=== PATIENT | female | born 1995 | race Hispanic/Latino ===

== ENCOUNTER 2024-07-14 13:41 | Emergency (ER) | payer BC, SELFPAY ==
[2024-07-14 13:45] VITALS: BP 164/99
[2024-07-14 14:05] LABS: % Basophils 0.6 % (0-2); % Eosinophils 1.4 % (0-6); % Immature Granulocytes 0.4 % (0-0.5); % Monocytes 6.6 % (1.7-9.3); Absolute Basophils 0.1 10^3/uL (0-0.2); Absolute Eosinophils 0.1 10^3/uL (0-0.7); Absolute Lymphocytes 2.3 10^3/uL (1.2-3.4); Absolute Monocytes 0.7 10^3/uL (0.1-0.6); Absolute Neutrophils 6.7 10^3/uL (1.4-6.5); Hematocrit 42.1 % (37.0-47.0); Hemoglobin 14.9 g/dL (12.0-16.0); Mean Corp Hgb Conc. 35.4 g/dL (33.0-37.0); Mean Corpuscular Volume 84.7 fL (81.0-99.0); Mean Platelet Volume 8.6 fL (7.4-10.4); Nucleated Red Blood Cells % 0 %; Platelet Count 353 10^3/uL (130-400); Red Blood Cell Count 4.97 10^6/uL (4.20-5.40); White Blood Cell Count 9.9 10^3/uL (4.8-10.8)
[2024-07-14 14:13] LABS: HCG, Serum Qualitative Screen Negative
[2024-07-14 14:14] LABS: INR 0.92; PT 12.7 Sec (11.4-14.6)
[2024-07-14 14:17] LABS: ALT (SGPT) 83 U/L (0-35); AST (SGOT) 45 U/L (14-36); Albumin 5.1 g/dl (3.5-5.0); Alkaline Phosphatase 95 U/L (38-126); Blood Urea Nitrogen 13 mg/dl (7-17); Calcium 9.9 mg/dl (8.4-10.2); Carbon Dioxide 24 mmol/L (22-30); Chloride 100 mmol/L (98-107); Glucose 109 mg/dl (70-99); Potassium 4.2 mmol/L (3.5-5.1); Sodium 136 mmol/L (135-145); Total Bilirubin 0.7 mg/dl (0.2-1.3); Total Protein 8.2 g/dl (6.3-8.2); eGFR > 60.00
[2024-07-14 14:29] LABS: Troponin I < 0.012 ng/ml
[2024-07-14 14:48] LABS: TSH Reflex To Free T4 1.46 uIU/ml (0.47-4.68)
--- NOTE | 2024-07-14 14:52 | ED.GENMED ---
History of Present Illness
General
Chief Complaint: Heart Rate Problem
Source: patient
Exam Limitations: none
Time Seen by Provider: 07/14/24 14:43
Nursing documentation reviewed up to this point in time: agreed with
History of Present Illness
History of Present Illness:
This is a 28-year-old female with no past medical history who presents emergency department today with concerns of asymptomatic tachycardia. Patient reports that she had a checkup with her primary care provider today and they noted incidentally on
her vital signs that her heart rate was elevated. They subsequently did a EKG and they saw 'abnormalities' and advised her to report to the emergency department for further evaluation. Patient denies any sensation of palpitations, chest pain She
denies shortness of breath. Patient's primary care provider is concerned about a possible blood clot. She denies any recent long distance travel, denies any oral contraceptive use, denies any redness or swelling in 1 leg. She denies any syncopal
episodes. She states that she has a history of sinus tachycardia and was told that appointments before that her heart rate is high.
Review of Systems
Review of Systems
All Other Systems: ROS reviewed and negative except as documented in HPI and ROS
Phy Exam
Physical Exam
Physical Exam:
General: Patient is well appearing and in no acute distress; non-toxic
Skin: Warm and dry, no rashes or lesions
Head: Normocephalic, atraumatic
Eyes: Sclera non-icteric. EOMs intact.
Cardiac: Mild tachycardia noted otherwise regular rhythm, no murmurs
Peripheral Vascular: No lower extremity swelling or edema
Pulm: Normal respiratory effort, no wheezes, rales, rhonchi
Abdomen: No abdominal tenderness to palpation
Neuro: CN II-XII intact, no focal neurologic deficits.
Psychiatric: Appropriate mood and affect.
Course
Orders/Labs/Results
Orders:
Orders
07/14/24 13:43
EKG [Electrocardiogram (*1)] Urgent
Reason for Study: Bradycardia / Tachycardia
EKG- Treatment ONCE
Test Result ONCE
07/14/24 13:54
Complete Blood Count/With Diff Urgent
Comprehensive Metabolic Panel Urgent
HCG, Serum Qualitative Screen Urgent
Prothrombin Time Urgent
TSH Reflex To Free T4 Urgent
Troponin I Urgent
07/14/24 15:07
Cardiac Monitoring- Treatment ONCE
07/14/24 15:28
D-Dimer Urgent
Magnesium Urgent
Abnormal Lab Results
07/14/24
13:54
Absolute Neuts (auto) 6.7 H 10^3/uL
(1.4-6.5)
Absolute Monos (auto) 0.7 H 10^3/uL
(0.1-0.6)
Glucose 109 H mg/dl
(70-99)
AST 45 H U/L
(14-36)
ALT 83 H U/L
(0-35)
Albumin 5.1 H g/dl
(3.5-5.0)
07/14/24 13:54
07/14/24 13:54
Vital Signs
Pulse: 104
Initial and Last Documented VS:
Initial Vital Signs
Temp Pulse Resp BP Pulse Ox
99.0 F 114 16 164/99 99
07/14/24 13:45 07/14/24 13:45 07/14/24 13:45 07/14/24 13:45 07/14/24 13:45
Last Documented Vital Signs
Temp Pulse Resp BP Pulse Ox
99.0 F 93 23 164/99 98
07/14/24 13:45 07/14/24 16:15 07/14/24 16:15 07/14/24 13:45 07/14/24 16:15
MDM/Problems Addressed
Differential Diagnosis Includes:
Sinus tachycardia, atrial tachycardia, pulmonary embolism, hyperthyroidism, symptomatic anemia
MDM/Problems Addressed:
28-year-old female presents emergency department today with concerns of sinus tachycardia. She went for routine visit with her PCP today when they noted her heart rate to be high. They also stated that she had a an EKG abnormality but she was not
told what the EKG abnormality was. Her EKG today demonstrates sinus Tachycardia but no concerning abnormal rhythm. On the monitor, I reviewed her rhythm and did not appreciate any abnormal rhythms, no PVCs no PACs. She is completely asymptomatic.
CBC and CMP unremarkable. D-dimer normal, TSH normal, not , troponin undetectable. No clear etiology to patient's signs tachycardia at this time, recommend following up with cardiology for Holter monitor evaluation. Patient stable for
discharge.
Chronic conditions affecting care:
n/a
*Pulse Oximetry
Patient hypoxic: no
*EKG
Interpreted by ED Provider?: Yes
EKG Intrepretation Date: 07/14/24
Interpretation: normal
Comparison EKG: no comparison EKG present
Heart Rate: 117
Rate: normal
Rhythm: sinus
*Critical Care Note
Total Time (30-74mins, 75-104mins- exclusive of procedures): Not Applicable
Data Reviewed
Review of Other/Old Records Reveals: Records (Reviewed [facility], no previous ER physician documentation to review)
Patient Management
Escalation/DeEscalation of care consider admission/obs:
Reviewed case with my attending, patient stable for discharge
ED Attending Note
-
Portions of this chart may have been created with voice recognition software.� Occasional wrong word or��sound alike� substitutions may have occurred due to the inherent limitations of voice recognition software.
Discharge Plan
Departure
Patient Disposition: Home (Routine Discharge)
Date of Disposition: 07/14/24
Time of Disposition: 16:16
Patient with high blood pressure during this ER visit?: Yes
Condition: Good
Discharge Problem:
Sinus tachycardia
Instructions: Sinus Tachycardia (DC), BLOOD PRESSURE
Referrals:
Bonny Ibanez PA-C [Family Provider] -
Yan Perez MD [Active] - Call in 1-3 days for appt
Activity Restrictions/Additional Instructions:
Please call the attached number to schedule an appointment to see cardiology in follow up. You may need a halter monitor for further evaluation.
PLEASE RETURN TO THE EMERGENCY DEPARTMENT SHOULD YOU DEVELOP CHEST PAIN, SHORTNESS OF BREATH, PALPITATIONS, LIGHTHEADEDNESS, SYNCOPAL EPISODES, OR ANY OTHER SIGNS OR SYMPTOMS CONCERNING TO YOU.
Interventions
Interventions:
*Nursing Disposition Last Done: 07/14/24 17:16
ED- Pulmonary Assessment Last Done: 07/14/24 15:31
ED- Cardiac Assessment Last Done: 07/14/24 15:31
Discharge Date and Time
Discharge Date/Time: 07/14/24 17:16
Print Language: CHINESE
[2024-07-14 15:31] VITALS: BMI 36.0
[2024-07-14 15:54] LABS: D-Dimer < 0.27 ug/mlFEU (0.00-0.50)
== END 2024-07-14 17:16 | disposition home or self-care (01) ==
LOC: EMR 13:41
PROVIDERS: Physician Assistant; EMERGENCY PHYSICIAN Emergency Medicine; FAMILY PHYSICIAN Physician Assistant
DX: R00.0 Tachycardia, unspecified (principal)
CPT/HCPCS: 99284; 80053; 83735; 84443; 84484; 84703; 85025; 85379; 85610; 93005

== ENCOUNTER → 2024-11-13 12:57 | Outpatient (REF) | payer BC, SELFPAY | LOC: RCS 12:57 | PROVIDERS: ATTENDING PHYSICIAN Internal Medicine Interventional Cardiology; FAMILY PHYSICIAN Physician Assistant | DX: R00.2 Palpitations (principal) | CPT/HCPCS: 93306 ==